=== PATIENT | female | born 1940 | race Two or more races ===

== ENCOUNTER 2023-03-20 12:20 | Emergency (ER) | payer OTHER ==
[~2023-03-20] VITALS: Ht 152.4 cm; Wt 86.2 kg
[2023-03-20] MEDS ORDERED: LEVOTHYROXINE25 MCG PO (12:33)
[2023-03-20] MEDS ORDERED: COZAAR25 MG PO (12:33)
[2023-03-20] MEDS ORDERED: MUCINEX1200 MG PO (15:44)
== END 2023-03-20 16:00 | disposition home or self-care (01) ==
LOC: ER 12:20
DX: R05.9 Cough, unspecified (principal); I10 Essential (primary) hypertension; H40.89 Other specified glaucoma; M06.8A Other specified rheumatoid arthritis, other specified site; E03.9 Hypothyroidism, unspecified; J45.909 Unspecified asthma, uncomplicated; Z20.822 Contact with and (suspected) exposure to COVID-19

== ENCOUNTER → 2023-04-17 | Emergency (ER) | payer OTHER ==
[~2023-04-17] VITALS: Ht 157.5 cm; Wt 88.5 kg
[~2023-04-17] MED LIST: BENADRYL25 MG PO; COZAAR25 MG PO; LEVOTHYROXINE25 MCG PO; MEDROLPACK PO; MUCINEX1200 MG PO; PYRIDIUM DS200 MG
== END | disposition home or self-care (01) ==
LOC: ER 14:00
DX: L50.0 Allergic urticaria (principal); T36.8X5A Adverse effect of other systemic antibiotics, initial encounter; I10 Essential (primary) hypertension; E03.9 Hypothyroidism, unspecified; Z88.8 Allergy status to other drugs, medicaments and biological substances; M19.90 Unspecified osteoarthritis, unspecified site